=== PATIENT | female | born 1995 | race Caucasian/White ===

== ENCOUNTER 2017-12-06 06:36 | Inpatient (IN) | payer OTHER ==
[2017-12-06] MEDS ORDERED: BUTORPHANOL TARTRATE 1 MG/ML VIAL IVPUSH ONE (07:30)
[2017-12-06] MEDS ORDERED: BUTORPHANOL TARTRATE 1 MG/ML VIAL ONE ×4 (07:43→11:36)
[2017-12-06] MEDS ORDERED: PROMETHAZINE HCL 25 MG/1 ML VIAL ONE ×2 (07:43→11:36)
[2017-12-06 08:03] VITALS: BMI 29.9
[2017-12-06 08:08] LABS: HEMATOCRIT 25.5 % (32.4-45.2); HEMOGLOBIN 8.1 GM/dL (10.7-15.3); MCHC 31.8 g/dl (32.0-36.0); MEAN CELL VOLUME 78.5 fl (80-96); MEAN PLT VOLUME 8.2 fl (7.5-11.1); PLATELET COUNT 210 K/MM3 (134-434); RBC 3.24 M/mm3 (3.60-5.2); RDW 18.9 % (11.6-15.6); WHITE BLOOD COUNT 10.4 K/mm3 (4.0-10.0)
[2017-12-06 08:35] LABS: INR 0.99 (0.82-1.09); PROTHROMBIN TIME (PATIENT) 11.2 SEC (9.7-13.0)
[2017-12-06 08:47] LABS: ANION GAP 10 (8-16); BLOOD UREA NITROGEN 9 mg/dL (7-18); CALCIUM 8.2 mg/dL (8.5-10.1); CHLORIDE 105 mmol/L (98-107); CO2 24 mmol/L (21-32); CREATININE 0.5 mg/dL (0.55-1.02); GLUCOSE,RANDOM 147 mg/dL (74-106); POTASSIUM 3.8 mmol/L (3.5-5.1); SODIUM 139 mmol/L (136-145)
[2017-12-06] MEDS ORDERED: PROMETHAZINE HCL 25 MG/1 ML VIAL IVPUSH ONE (10:02)
--- NOTE | 2017-12-06 10:14 | PN ---
Progress Note (short form) - Note Progress Note: cx 5 cm, 80 vx -2 , mi, bulging , AROM, clera, fhr cat 1, scalp electrode applied , irregular contraction , advised pitocin stimulation, rba discussed
[2017-12-06] MEDS ORDERED: OXYTOCIN 30 UNITS in 0.9% NS 30 UNIT/500 ML INFUS.BAG IVPB SCH (10:15)
[2017-12-06] MEDS ORDERED: DEXTROSE 5%-LACTATED RINGERS 1,000 ML IV SCH (10:15)
[2017-12-06] MEDS ORDERED: OXYTOCIN 20 UNITS in 0.9% NS 20 UNIT/1,000 ML INFUS.BAG IV ONE ×2 (10:18→17:15)
--- NOTE | 2017-12-06 10:21 | HP ---
Past Medical History - Primary Care Physician PCP:: Wilfredo Sampson - Admission Chief Complaint: 41.3 week ,labor History of Present Illness: 22 yo f g 1p0 edc by sono 11/26/17 41.3 weeks, in labor, no rom, no bleeding, cx 4 cm, 80 vx -3 mi, fhr cat 1, irregular contraction History Source: Patient Limitations to Obtaining History: No Limitations - Past Medical History ...: 1 ...Para: 0 ... Weeks Gestation by Dates: 41.3 ...EDC by Sono: 11/26/17 Heme/Onc: Yes: Anemia - Past Surgical History Hx Myomectomy: No Hx Transabdominal Cerclage: No - Smoking History Smoking history: Never smoked Have you smoked in the past 12 months: No - Alcohol/Substance Use Hx Alcohol Use: No - Social History History of Recent Travel: No Home Medications - Allergies Allergies/Adverse Reactions: Allergies Allergy/AdvReac Type Severity Reaction Status Date / Time No Known Allergies Allergy Verified 12/05/17 12:01 - Home Medications Home Medications: Ambulatory Orders Vit/Iron Fum/Folic AC [ Tablet] 1 tab PO DAILY 12/04/17 Tablet 1 tablet PO DAILY 12/06/17 Review of Systems - Review of Systems Constitutional: reports: No Symptoms Eyes: reports: No Symptoms HENT: reports: No Symptoms Neck: reports: No Symptoms Cardiovascular: reports: No Symptoms Gastrointestinal: reports: No Symptoms Genitourinary: reports: No Symptoms Breasts: reports: No Symptoms Reported Musculoskeletal: reports: No Symptoms Integumentary: reports: No Symptoms Neurological: reports: No Symptoms Endocrine: reports: No Symptoms Hematology/Lymphatic: reports: No Symptoms Psychiatric: reports: No Symptoms Physical Exam - Maternity Vital Signs: Vital Signs Temperature 98.4 F 12/06/17 08:00 Pulse Rate 100 H 12/06/17 09:00 Respiratory Rate 20 12/06/17 09:00 Blood Pressure 130/76 12/06/17 09:00 O2 Sat by Pulse Oximetry (%) - Abdominal Exam/OB Fundal Height: 40 Number of Fetuses: Single Presentation: Vertex Contractions: Yes Regularity: Irregular Intensity: Mod/Strong Monitor Mode: External Heart Rate Location: [facility] Category: I Accelerations: Uniform Decelerations: None - Vaginal Exam/OB Vaginal Bleediing: No Speculum Exam: No Dilatation (cm): 4 cm Effacement (%): 80 Amniotic Membrane Status: Bulging Presentation: Vertex/Position Station: -3 - Physical Exam Extremities: Yes: WNL Edema: Yes Edema: LLE: Trace, RLE: Trace Deep Tendon Reflex Grade: Normal +2 Psychiatric: Yes: WNL - Labs Lab Results: CBC, BMP 12/06/17 07:45 12/06/17 07:45 Hemorrhage Risk Assessment - Risk Factors Medium Risk Factors: Yes: None High Risk Factors: Yes: None Risk Score: 1 Risk Level: Medium Risk Problem List - Problems (1) with 41 completed weeks gestation Code(s): Z3A.41 - 41 WEEKS GESTATION OF (2) Metabolic disturbance in labor and delivery Code(s): O75.0 - MATERNAL DISTRESS DURING LABOR AND DELIVERY (3) Labor established Code(s): AIQ9297 - (4) Anemia Code(s): D64.9 - ANEMIA, UNSPECIFIED Qualifiers: Anemia type: iron deficiency Assessment/Plan admit, heart monitoring, type and screen.
[2017-12-06] MEDS ORDERED: ELECTROLYTE-148 SOLN 1,000 ML IV SCH (10:30)
[2017-12-06 11:06] LABS: ACTIVATED PTT 26.3 SECONDS (26.9-34.4)
[2017-12-06] MEDS ORDERED: PROMETHAZINE HCL 25 MG/1 ML VIAL IVPB ONE (12:15)
[2017-12-06] MEDS ORDERED: BUTORPHANOL TARTRATE 1 MG/ML VIAL IVPB ONE (12:15)
--- NOTE | 2017-12-06 12:17 | PN ---
Progress Note (short form) - Note Progress Note: cx 6 cm, 80, vx, -2 mr, fhr cat 1, contraction short, q 1min, pitocin stopped Problem List - Problems (1) with 41 completed weeks gestation Code(s): Z3A.41 - 41 WEEKS GESTATION OF (2) Metabolic disturbance in labor and delivery Code(s): O75.0 - MATERNAL DISTRESS DURING LABOR AND DELIVERY (3) Labor established Code(s): KWL8301 - (4) Anemia Code(s): D64.9 - ANEMIA, UNSPECIFIED Qualifiers: Anemia type: iron deficiency
[2017-12-06 12:37] LABS: PLATELET ESTIMATE ADEQUATE
[2017-12-06] MEDS ORDERED: FENTANYL/BUPIVACAINE/NS/PF - PCEA - 50 ML DISP.SYRIN EP ONE ×2 (13:24→17:55)
[2017-12-06] MEDS ORDERED: NALOXONE HCL 0.4 MG/ML VIAL IVPUSH PRN (13:55)
[2017-12-06] MEDS: FENTANYL/BUPIVACAINE/NS/PF - PCEA - 50 ML DISP.SYRIN EP SCH (14:30)
[2017-12-06] MEDS ORDERED: LIDOCAINE HCL 1% PRESERVATIVE FREE - 30ML VIAL ONE (17:16)
--- NOTE | 2017-12-06 19:46 | PN ---
Progress Note (short form) - Note Progress Note: cx full 100 vx 2+. fhr cat 2 , patient pushing Problem List - Problems (1) with 41 completed weeks gestation Code(s): Z3A.41 - 41 WEEKS GESTATION OF (2) Metabolic disturbance in labor and delivery Code(s): O75.0 - MATERNAL DISTRESS DURING LABOR AND DELIVERY (3) Labor established Code(s): [id number] - (4) Anemia Code(s): D64.9 - ANEMIA, UNSPECIFIED Qualifiers: Anemia type: iron deficiency
[2017-12-06] MEDS ORDERED: WITCH HAZEL 50% (TUCKS) 40 PAD/JAR PAD TP PRN (20:33)
[2017-12-06] MEDS ORDERED: BISACODYL 10 MG SUPP.RECT RC PRN (20:33)
[2017-12-06] MEDS ORDERED: oxyCODONE HCL 5 MG TABLET PO PRN (20:33)
[2017-12-06] MEDS ORDERED: BENZOCAINE 28 GM HEMORRHOIDAL OINTMENT TP PRN (20:33)
[2017-12-06] MEDS ORDERED: METHYLERGONOVINE MALEATE 0.2 MG/1 ML AMP IM PRN (20:33)
[2017-12-06] MEDS ORDERED: BENZOCAINE 20% 57 GM BOTTLE TP PRN (20:33)
[2017-12-06] MEDS ORDERED: D5W-LR W/ 20 UNITS OXYTOCIN 20 UNIT/1,000 ML INFUS.BAG IV SCH (20:45)
[2017-12-06] MEDS ORDERED: IBUPROFEN 600 MG TABLET (FP) PO ONE (21:00)
[2017-12-06] MEDS ORDERED: ACETAMINOPHEN 325 MG TABLET (FP) ONE (21:00)
[2017-12-06] MEDS: ACETAMINOPHEN 325 MG TABLET (FP) PO PRN (21:05)
[2017-12-06] MEDS: IBUPROFEN 600 MG TABLET (FP) PO PRN (21:05)
[2017-12-06 21:25] LABS: VENOUS PC02 50.9 mmHg (38-52); VENOUS PH 7.23 (7.32-7.42); VENOUS PO2 16.8 mmHg (28-48)
[2017-12-06 21:27] LABS: ARTERIAL BLOOD GAS PCO2 62.5 mmHg (35-45); ARTERIAL BLOOD GAS PO2 13.9 mmHg (80-100); ARTERIAL BLOOD GAS pH 7.18 (7.35-7.45)
[2017-12-07 07:31] LABS: BASO % 0.2 % (0-2.0); EOS % 0.2 % (0-4.5); HEMATOCRIT 18.7 % (32.4-45.2); LYMPH % 12.1 % (8-40); MCH 24.6 pg (25.7-33.7); MCHC 31.3 g/dl (32.0-36.0); MEAN CELL VOLUME 78.4 fl (80-96); MEAN PLT VOLUME 8.4 fl (7.5-11.1); NEUT % 75.5 % (42.8-82.8); PLATELET COUNT 179 K/MM3 (134-434); RBC 2.38 M/mm3 (3.60-5.2); RDW 19.1 % (11.6-15.6)
[2017-12-07 07:50] LABS: HEMOGLOBIN 5.9 GM/dL (10.7-15.3)
--- NOTE | 2017-12-07 08:28 | PN ---
Post Progress Note - Subjective Subjective: pt states she is exhausted. not oob yet iv in situ c/o dizziness c/o cramps , scale 6/10 Post Day: 1 Type of Delivery: Vital Signs: Vital Signs Temperature 98.7 F 12/07/17 06:00 Pulse Rate 95 H 12/07/17 06:00 Respiratory Rate 18 12/07/17 06:00 Blood Pressure 98/44 12/07/17 06:00 O2 Sat by Pulse Oximetry (%) 99 12/06/17 14:30 Breast Exam: Yes: Soft, Other (plans to BF ). No: Engorged Uterus: Yes: Fundus Firm, Fundus below umbilicus, Non-tender Lochia: Yes: Rubra Lochia, amount: Moderate Extremities: Yes: Calves non-tender Perineum: Yes: Episiotomy (intact , perineal soreness ) Activity: Other (only to bathroom ) - Labs Labs: CBC WBC 17.0 K/mm3 (4.0-10.0) H D 12/07/17 06:57 RBC 2.38 M/mm3 (3.60-5.2) L D 12/07/17 06:57 Hgb 5.9 GM/dL (10.7-15.3) L* D 12/07/17 06:57 Hct 18.7 % (32.4-45.2) L D 12/07/17 06:57 MCV 78.4 fl (80-96) L 12/07/17 06:57 MCH 24.6 pg (25.7-33.7) L 12/07/17 06:57 MCHC 31.3 g/dl (32.0-36.0) L 12/07/17 06:57 RDW 19.1 % (11.6-15.6) H 12/07/17 06:57 Plt Count 179 K/MM3 (134-434) 12/07/17 06:57 MPV 8.4 fl (7.5-11.1) 12/07/17 06:57 Total Counted 100 12/06/17 07:45 Neutrophils % 75.5 % (42.8-82.8) 12/07/17 06:57 Neutrophils % (Manual) 72.0 % (42.8-82.8) 12/06/17 07:45 Band Neutrophils % 2.0 % (0-10) 12/06/17 07:45 Lymphocytes % 12.1 % (8-40) 12/07/17 06:57 Lymphocytes % (Manual) 19.0 % (8-40) 12/06/17 07:45 Monocytes % 12.0 % (3.8-10.2) H 12/07/17 06:57 Monocytes % (Manual) 3 % (3.8-10.2) L 12/06/17 07:45 Eosinophils % 0.2 % (0-4.5) 12/07/17 06:57 Eosinophils % (Manual) 2.0 % (0-4.5) 12/06/17 07:45 Basophils % 0.2 % (0-2.0) 12/07/17 06:57 Myelocytes % (Man) 1 % (0-2) 12/06/17 07:45 Metamyelocytes 1 % (0-2) 12/06/17 07:45 Platelet Estimate Adequate 12/06/17 07:45 Platelet Comment Few large plts 12/06/17 07:45 Problem List - Problems (1) care following vaginal delivery Code(s): Z39.2 - ENCOUNTER FOR ROUTINE FOLLOW-UP (2) Severe anemia Code(s): D64.9 - ANEMIA, UNSPECIFIED Assessment/Plan s/p primigavda vaginal delivery, severe anemia plan : discuss r/b/a of packcell transfusion , she accepts transfusion cross match 2 pack cell units , transfuse
[2017-12-07] MEDS: FERROUS SO4 325 MG TABLET (FP) PO SCH ×2 (09:04→17:17)
[2017-12-07] MEDS: PRENATAL VITAMINS W/ FOLIC ACID TABLET (FP) PO SCH (09:04)
--- NOTE | 2017-12-07 09:44 | PN ---
Progress Note (short form) - Note Progress Note: patient changed her mind , refusing to accept blood transfusion risk, benefits alternatives explained in details not ltd to symptoms of dizziness, fainting spells, SOB exhaustion , headache etc It will take longer time to reverse symptoms of anemia by taking high protein , high iron diet , po iron & vit risk of transfusion reaction, itching, chills etc told pt states there are other ways of building up HGB , she will resort to it. Problem List - Problems (1) care following vaginal delivery Code(s): Z39.2 - ENCOUNTER FOR ROUTINE FOLLOW-UP (2) Severe anemia Code(s): D64.9 - ANEMIA, UNSPECIFIED
[2017-12-07] MEDS ORDERED: PRENATAL VITAMINS W/ FOLIC ACID TABLET (FP) PO SCH ×2 (10:00)
[2017-12-07] MEDS: ACETAMINOPHEN 325 MG TABLET (FP) PO PRN (14:37)
[2017-12-07] MEDS: IBUPROFEN 600 MG TABLET (FP) PO PRN (14:37)
[2017-12-07] MEDS: FENTANYL/BUPIVACAINE/NS/PF - PCEA - 50 ML DISP.SYRIN EP SCH (15:36)
[2017-12-07] MEDS ORDERED: SENNOSIDES/DOCUSATE COMBO (SENNA PLUS) TABLET (UD) PO PRN (22:00)
[2017-12-08] MEDS: FERROUS SO4 325 MG TABLET (FP) PO SCH (08:00)
[2017-12-08 08:11] LABS: HEMATOCRIT 24.9 % (32.4-45.2); HEMOGLOBIN 8.1 GM/dL (10.7-15.3); MCH 26.1 pg (25.7-33.7); MCHC 32.5 g/dl (32.0-36.0); MEAN CELL VOLUME 80.2 fl (80-96); MEAN PLT VOLUME 8.4 fl (7.5-11.1); PLATELET COUNT 223 K/MM3 (134-434); RBC 3.11 M/mm3 (3.60-5.2); RDW 18.1 % (11.6-15.6); WHITE BLOOD COUNT 16.4 K/mm3 (4.0-10.0)
[2017-12-08] MEDS: PRENATAL VITAMINS W/ FOLIC ACID TABLET (FP) PO SCH (09:10)
[2017-12-08 13:02] LABS: PLATELET ESTIMATE NORMAL
--- NOTE | 2017-12-08 13:25 | DS ---
Physical Exam-DIRECTOR OF FINANCIAL AID Vital Signs: Vital Signs Temperature 98.5 F 12/07/17 21:50 Pulse Rate 88 12/07/17 21:50 Respiratory Rate 18 12/07/17 21:50 Blood Pressure 103/50 12/07/17 21:50 O2 Sat by Pulse Oximetry (%) 99 12/06/17 14:30 ....Post : Yes: Uterus firm, Uterus non-tender, Slight lochia rubra Edema: No Labs: CBC, BMP 12/08/17 07:45 12/06/17 07:45 Delivery - Delivery Vaginal Delivery: Spontaneous (no complication) Type of Anesthesia: Local, Epidural Episiotomy/Laceration: Midline EBL (cc): 300 Delivery, Single - Stages of Labor Date 1st Stage Initiatied: 12/06/17 Time 1st Stage Initiated: 05:00 Date 2nd Stage Initiated: 12/06/17 Time 2nd Stage Initiated: 18:20 Date of Delivery: 12/06/17 Time of Delivery: 20:12 Time Placenta Delivered: 20:15 Placenta: Yes: Spontaneous - Condition of Infant Health Consultant/Liturgical Music Director Present: No Gender: Female Weight: 8 lb 1 oz Position: Left, OA Total Hours ROM (Hrs/Mins): 10HOURS - 1 Minute Total Score: 9 5 Minutes Total Score: 9 - [place] Feeding Plan Initial Plan: Elected not to breastfeed exclusively throughout hospitalization Discharge Summary Reason For Visit: LABOR Current Active Problems Anemia (Acute) Labor established (Acute) Metabolic disturbance in labor and delivery (Acute) care following vaginal delivery (Acute) with 41 completed weeks gestation (Acute) Severe anemia (Acute) Procedures: Principal: Hospital Course: chronic iron def. anemia Condition: Good - Instructions Diet, Activity, Other Instructions: regular diet, high iron food, cont PNV, IRON Referrals: Wilfredo Sampson MD [Staff Physician] - - Home Medications Comprehensive Discharge Medication List: Ambulatory Orders Vit/Iron Fum/Folic AC [ Tablet] 1 tab PO DAILY 12/04/17 Tablet 1 tablet PO DAILY 12/06/17
[2017-12-08 16:50] VITALS: BP 115/59; PULSE 91; TEMP 98.6
== END 2017-12-08 16:15 | disposition home or self-care (01) | DRG 560 ==
LOC: JLDR 06:36 → J3W 22:36
PROVIDERS: ADMIT Obstetrics & Gynecology; ATTEND Obstetrics & Gynecology
PROC: 10E0XZZ Delivery of Products of Conception, External Approach (ICD-10-PCS; principal; 2017-12-06)
PROC: 0W8NXZZ Division of Female Perineum, External Approach (ICD-10-PCS; 2017-12-06)
DX: O48.0 Post-term pregnancy (principal); O75.0 Maternal distress during labor and delivery; D50.9 Iron deficiency anemia, unspecified; O99.02 Anemia complicating childbirth; Z37.0 Single live birth; Z3A.41 41 weeks gestation of pregnancy
CPT/HCPCS: 36415; 36430; 36600; 59409; 80048; 82803; 85025; 85610; 85730; 86593; 86850; 86900; 86901; 86922; P9038; P9058